=== PATIENT | male | born 1990 | race Caucasian/White ===

== ENCOUNTER 2016-09-24 16:10 | Emergency (ER) | payer BC ==
[~2016-09-24] VITALS: Ht 180.3 cm; Wt 111.0 kg
[~2016-09-24 16:10] MED LIST: DOCU-144 PO; HYDR26CR PR
[2016-09-24 16:21] VITALS: Ht 180.3 cm; Wt 111.0 kg
--- NOTE | 2016-09-24 19:56 | RADRPT ---
PROCEDURE: XR Chest. CLINICAL INDICATION: chest pain TECHNIQUE: Single frontal view of the chest was obtained COMPARISON: None FINDINGS: The heart and mediastinum are within normal limits. The lungs are clear. There is no pleural effusion or pneumothorax. RPTAT: AA IMPRESSION: No acute disease. .Jewel Melgoza MD, Date Time Electronically viewed and signed by .Jewel Melgoza MD, on 09/24/2016 19:56 .S/
[2016-09-24] MEDS ORDERED: IBUP800T25 PO (22:03)
--- NOTE | 2016-09-24 22:09 | ERD ---
ER Documentation Chief Complaint Date/Time DATE: 09/24/16 TIME: 22:05 Chief Complaint INTERMITTANT CP X 2 DASY 07/18 HPI This is a 25-year-old male complains of left parasternal sharp chest pain. The patient states that the pain off and on for a few years and tends to come and go. He says sometimes he will move in a certain direction and he will feel a sharp shooting pain left anterior chest. He has no shortness of breath diaphoresis says he had some slight tingling in his left arm today located in the shoulder but there is none now. Says is the same pain he has had for years and not any worse but has had episodes over the past 2 days 2. No family cardiac disease history patient has no medical problems. ROS All systems reviewed and are negative except as per history of present illness. Medications Home Meds Active Scripts Ibuprofen* (Motrin*) 800 Mg Tab, 800 MG PO Q6H Y for PAIN AND OR ELEVATED TEMP, #30 TAB Prov:PARTH MIN DO 09/24/16 Hydrocortisone* Rectal (Preparation H* Cream) 1% - 26 Gm Cream.gm., 1 APPLIC ME BID, #1 TUB Prov:AVNI ROMERO PA-C 03/14/16 Docusate Sodium* (Colace*) 100 Mg Capsule, 100 MG PO TID, #30 CAP Prov:AVNI ROMERO PA-C 03/14/16 Allergies Allergies: Coded Allergies: No Known Allergy (Unverified , 09/16/11) PMhx/Soc Medical and Surgical Hx: pt denies Medical Hx, pt denies Surgical Hx History of Surgery: No Anesthesia Reaction: No Hx Neurological Disorder: No Hx Respiratory Disorders: No Hx Cardiac Disorders: No Hx Psychiatric Problems: No Hx Miscellaneous Medical Probl: No Hx Alcohol Use: No Hx Substance Use: No Hx Tobacco Use: No Smoking Status: Never smoker FmHx Family History: No coronary disease Physical Exam Vitals Vital Signs Date Time Temp Pulse Resp B/P Pulse Ox O2 Delivery O2 Flow Rate FiO2 09/24/16 16:21 99.3 80 18 155/90 100 Physical Exam Const: Well-developed, well-nourished Head: Atraumatic, normocephalic Eyes: Normal Conjunctiva, PERRLA, EOMI, normal sclera, no nystagmus ENT: Normal External Ears, Nose and Mouth, moist mucus membranes. Neck: Full range of motion. No meningismus, no lymphadenopathy. Resp: Clear to auscultation bilaterally, no wheezing, rhonchi, rales, there is some sharp reproducible pinpoint pain around ribs 4 and 5 at the left costosternal margin. He says is the same pain he had currently. There is some mild reproduction with pushing on the left posterior rib cage will induce pain in the left anterior cage at this area. Cardio: Regular rate and rhythm, no murmurs, S1 S2 present Abd: Soft, non tender x 4, non distended. Normal bowel sounds, no guarding or rebound, no pulsitile abdominal masses or bruits Skin: No petechiae or rashes, no ecchymosis , no maculopapular rash Back: No midline or flank tenderness Ext: No cyanosis, or edema, FROM x 4, normal inspection, neurovascularly intact x 4 Neur: Awake and alert, STR 5/5 x 4, sensation intact x 4, no focal findings, cerebellum intact Psych: Normal Mood and Affect Results 24 hrs Laboratory Tests Test 09/24/16 19:15 Troponin I < 0.012ng/ml Procedures/MDM EKG: Rate/Rhythm: Normal sinus rhythm with sinus arrhythmia QRS, ST, QT: NORMAL ME, QRS, QT] Impression: NORMAL EKG PROCEDURE: XR Chest. CLINICAL INDICATION: chest pain TECHNIQUE: Single frontal view of the chest was obtained COMPARISON: None FINDINGS: The heart and mediastinum are within normal limits. The lungs are clear. There is no pleural effusion or pneumothorax. RPTAT: AA IMPRESSION: No acute disease. .Jewel Melgoza MD, MD Date Time Electronically viewed and signed by .Jewel Melgoza MD, MD on 09/24/2016 19: 56 .S/ CC: PARTH MIN DO Patient's chest pain is likely costochondritis or muscular skeletal in origin. His EKG is negative. His chest x-ray is negative. His troponin is negative. No signs of dilated aorta. Will treat him with Motrin and follow-up Departure Diagnosis: Primary Impression: Costochondritis Additional Impression: Chest pain of uncertain etiology Condition: Stable Patient Instructions: Costochondritis, Chest Pain, Uncertain Cause PARTH MIN DO Sep 24, 2016 22:09
[2016-09-24 22:16] VITALS: BP 158/96; PULSE 110; RESP 20
== END 2016-09-24 22:17 | disposition home or self-care (01) ==
LOC: FTE 16:10
DX: M94.0 Chondrocostal junction syndrome [Tietze] (principal)
CPT/HCPCS: 71010; 84484; 93005